=== PATIENT | male | born 1990 | race Caucasian/White ===

== ENCOUNTER 2017-04-11 20:59 | Emergency (ER) | payer SELFPAY ==
[~2017-04-11] VITALS: Ht 152.4 cm; Wt 102.1 kg
[2017-04-11 21:28] VITALS: BP 154/86
--- NOTE | 2017-04-11 22:30 | NUR ---
26 Y/O M W/C/O L EAR PAIN X 2 DAYS. DENIES ANY FEVER, CHILLS, NAUSEA OR VOMITING. NO S/S OF DISTRESS NOTED AT THE MOMENT. ER MD MADE AWARE.
--- NOTE | 2017-04-11 22:55 | NUR ---
PT AWATING FOR D/C PAPER WORK. NO S/S OF DISTRESS NOTED.
[2017-04-11] MEDS: AMOXICILLIN 500 MG CAP PO ONE (23:00)
[2017-04-11] MEDS: IBUPROFEN 800 MG TAB PO ONE (23:00)
[2017-04-11 23:17] VITALS: BP 137/84
--- NOTE | 2017-04-11 23:17 | NUR ---
Patient discharged with v/s stable. Written and verbal after care instructions given and explained. Patient alert, oriented and verbalized understanding of instructions. Ambulatory with steady gait. All questions addressed prior to discharge. ID band removed. Patient advised to follow up with PMD OR RETURN TO ER IF CONDITION WORSENS. Rx of PROMETHAZINE, AMOXICILLIN, AND MOTRIN given. Patient educated on indication of medication including possible reaction and side effects. Opportunity to ask questions provided and answered.
== END 2017-04-11 23:17 | disposition home or self-care (01) ==
LOC: MED 20:59
DX: H66.93 Otitis media, unspecified, bilateral (principal); R03.0 Elevated blood-pressure reading, without diagnosis of hypertension; R50.9 Fever, unspecified; R05 Cough
CPT/HCPCS: 99283